=== PATIENT | male | born 1960 | race Two or more races ===

== ENCOUNTER 2018-11-29 12:04 | Emergency (ER) | payer SELFPAY ==
[~2018-11-29] VITALS: Ht 172.7 cm; Wt 70.0 kg
[2018-11-29] MEDS ORDERED: ATOR10TA84 PO (12:06)
[2018-11-29] MEDS ORDERED: HYDR25TA PO (12:06)
[2018-11-29] MEDS ORDERED: LISI-660 PO (12:06)
[2018-11-29] MEDS ORDERED: GABA-529 PO (12:06)
[2018-11-29] MEDS ORDERED: KETOROLAC TROMETHAMINE 30 MG/ML VIAL IM ONE (12:30)
[2018-11-29] MEDS ORDERED: DEXAMETHASONE SOD PHOS 4 MG/ML 5 ML VIAL IM ONE (12:30)
[2018-11-29 13:25] VITALS: BP 140/83
== END 2018-11-29 14:00 | disposition home or self-care (01) ==
LOC: EMS 12:04
DX: M54.31 Sciatica, right side (principal); I10 Essential (primary) hypertension; E78.00 Pure hypercholesterolemia, unspecified; Z79.899 Other long term (current) drug therapy
CPT/HCPCS: 96372; 99283; J1100; J1885